=== PATIENT | female | born 1995 | race African-American/Black ===

== ENCOUNTER 2016-10-17 12:53 | Emergency (ER) | payer SELFPAY ==
[~2016-10-17] VITALS: Ht 157.5 cm; Wt 45.4 kg
[2016-10-17 13:02] VITALS: BP_SYST 118
--- NOTE | 2016-10-17 13:05 | NUR ---
Pt placed to ER waiting room in stable condition.
--- NOTE | 2016-10-17 13:06 | NUR ---
Pt placed to ER bed 03, to cristopherwkendy, report given to BATOOL Dixon.
[2016-10-17] MEDS ORDERED: NACL 0.9% 1,000 ML IV ONE (13:08)
--- NOTE | 2016-10-17 13:08 | NUR ---
ER at bedside examining patient.
[2016-10-17] MEDS ORDERED: MORPHINE 4 MG/ML INJ. SYRINGE IVP ONE (13:15)
[2016-10-17] MEDS ORDERED: PROMETHAZINE HCL 25 MG/ML AMP IVP ONE (13:15)
[2016-10-17 13:34] LABS: BASOPHILS # (AUTO) 0.3 K/uL (0.0-0.2); BASOPHILS % (AUTO) 2.9 % (0.0-2.0); EOSINOPHILS % (AUTO) 0.1 % (0.0-4.0); HEMATOCRIT 38.1 % (36-48); HEMOGLOBIN 12.1 g/dL (12.0-16.0); LYMPHOCYTES # (AUTO) 1.6 K/uL (1.0-5.5); LYMPHOCYTES % (AUTO) 18.2 % (20.5-51.5); MEAN CORPUSCULAR HEMOGLOBIN 24 pg (27-31); MEAN CORPUSCULAR HGB CONC 32 % (32-36); MEAN CORPUSCULAR VOLUME 74 fL (79.0-98.0); MONOCYTES # (AUTO) 0.5 K/uL (0.0-1.0); MONOCYTES % (AUTO) 5.1 % (1.7-9.3); NEUTROPHILS # (AUTO) 6.7 K/uL (1.8-7.7); NEUTROPHILS % (AUTO) 73.7 % (40.0-70.0); PLATELET COUNT (AUTO) 229 K/uL (130-430); RED BLOOD CELL COUNT(AUTO) 5.15 MIL/uL (4.2-6.2); WHITE BLOOD COUNT (AUTO) 9.1 K/uL (4.8-10.8)
[2016-10-17 13:41] LABS: CREATININE 0.95 mg/dL (0.55-1.30); POTASSIUM 3.3 mmol/L (3.5-5.1)
[2016-10-17 13:47] LABS: PROTHROMBIN TIME 10.8 SECS (9.5-12.5)
[2016-10-17 13:48] LABS: ALBUMIN 4.3 g/dL (3.4-4.8); TOTAL BILIRUBIN 0.7 mg/dL (0.0-1.0)
--- NOTE | 2016-10-17 13:54 | NUR ---
MORPHINE 4 MG IVP GIVEN FOR ABDOMINAL PAIN.
--- NOTE | 2016-10-17 14:24 | NUR ---
PAIN SCALE DOWN TO 8 AFTER INTERVENTION.
[2016-10-17] MEDS ORDERED: HYDROmorphone 1 MG INJ. 1 MG/ML AMPUL IVP ONE (15:15)
--- NOTE | 2016-10-17 15:53 | NUR ---
PT VERBALIZED LOWER ABDOMINAL PAIN, DILAUDID 1 MG IVP FOR SCALE OF 8/10.
--- NOTE | 2016-10-17 16:35 | NUR ---
PT VOIDED AND SAMPLE SENT TO LAB DEPT FOR TEST.
[2016-10-17 16:44] LABS: BILIRUBIN,URINE NEGATIVE (NEGATIVE); BLOOD, URINE 3+ (NEGATIVE); CLARITY/URINE CLEAR (CLEAR); COLOR,URINE YELLOW (YELLOW); GLUCOSE,URINE NEGATIVE (NEGATIVE); KETONES,URINE NEGATIVE (NEGATIVE); LEUKOCYTE ESTERASE ,URINE NEGATIVE (NEGATIVE); NITRITE, URINE NEGATIVE (NEGATIVE); PROTEIN URINE TRACE (NEGATIVE); UROBILINOGEN,URINE 0.2 (0.2-1.0)
[2016-10-17 16:57] LABS: BACTERIA,URINE FEW /HPF (None Seen); WBC,URINE 0-3 /HPF (0-3)
--- NOTE | 2016-10-17 17:17 | NUR ---
Patient given written and verbal discharge instructions and verbalizes understanding. ER MD DR MOON discussed with patient the results and treatment provided. Patient in stable condition. ID arm band removed. IV catheter removed intact and dressing applied, no active bleeding. Rx of TYLENOL WITH CODEINE #3 AND ZOFRAN TABLET given. Patient educated on pain management and to follow up with PMD. Pain Scale 0. Opportunity for questions provided and answered.
--- NOTE | 2016-10-17 18:06 | NUR ---
Priya cloud in ED - 10/17/16 at 1835 by KARMEN Pt placed to ER bed , to nehemias, report given to BATOOL Dixon.
== END 2016-10-17 17:17 | disposition home or self-care (01) ==
LOC: SED 12:53
DX: R10.2 Pelvic and perineal pain (principal); N80.9 Endometriosis, unspecified
CPT/HCPCS: 36415; 80053; 81000; 82150; 83690; 85025; 85610; 85730; 96361; 96374; 96375; 99284; J1170; J2270; J2550; J7030